=== PATIENT | male | born 1955 | race Caucasian/White ===

== ENCOUNTER → 2016-08-26 | Outpatient (CLI) | payer OTHER ==
--- NOTE | 2016-08-26 17:22 | KCIC ---
PROCEDURE MR of the right shoulder HISTORY Impingement syndrome. Surgery 1992. Decreased range of motion with certain movements. COMPARISON None TECHNIQUE Routine multiplanar sequences are obtained. FINDINGS There are postsurgical changes at the acromioclavicular joint. There is also postsurgical change with extensive artifact at the rotator cuff. This does partially obscure visualization of the rotator cuff. As seen, the supraspinatus and infraspinatus tendons are very thin. The subscapularis tendon demonstrates tendinosis with mild partial tearing. Mild rotator cuff muscle volume loss with fatty infiltration. No significant subdeltoid bursal fluid. No significant glenohumeral joint effusion. Mild signal at the superior labrum suspicious for a tear. No evidence of paralabral cyst. Biceps tendinosis with partial tearing but no complete rupture or dislocation. Geographic bone lesion identified within the proximal humerus, measures 5 cm long axis. 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 There is marrow edema at the greater tuberosity which is likely reactive. No acute soft tissue injury. IMPRESSION 1. Postsurgical changes at the acromioclavicular joint and rotator cuff. The supraspinatus and infraspinatus tendons are largely obscured by artifact but do appear at least thinned, compatible with at least partial tearing. MR arthrography could be of benefit to better characterize the extent of any partial-thickness or full-thickness rotator cuff tearing, if indicated. Mild partial subscapularis tendon tear 2. Small superior labral tear. 3. 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 Due to its size, recommend correlation with radiographs. Bone scan could also be of benefit to document the degree of activity of the lesion, so as to better exclude other etiology, in particular low-grade chondrosarcoma. 4. Partial tearing of the biceps tendon. Electronically signed by: Everett Mukherjee MD (Aug 26, 2016 17:20:53)
== END | disposition home or self-care (01) ==
LOC: KCIC MRI 16:22
PROVIDERS: ATTEND Nurse Practitioner Family
DX: M75.41 Impingement syndrome of right shoulder (principal); S46.211A Strain of muscle, fascia and tendon of other parts of biceps, right arm, initial encounter; S43.431A Superior glenoid labrum lesion of right shoulder, initial encounter; X58.XXXA Exposure to other specified factors, initial encounter; Y93.89 Activity, other specified; Y92.89 Other specified places as the place of occurrence of the external cause; Y99.8 Other external cause status
CPT/HCPCS: 73221

== ENCOUNTER → 2017-07-10 | Outpatient (CLI) | payer OTHER | END | disposition home or self-care (01) | LOC: NM 10:47 | DX: D16.01 Benign neoplasm of scapula and long bones of right upper limb (principal) | CPT/HCPCS: 78300; 96374; A9503 ==

== ENCOUNTER → 2018-04-11 | Outpatient (CLI) | payer OTHER ==
[~2018-04-11] MED LIST: 0.9 % SODIUM CHLORIDE 10 ML DISP.SYRIN. ID ONE; GADOBUTROL 10 MMOL/10 ML VIAL INT ART ONE; IOHEXOL 300 MG/ML 50 ML VIAL. INT ART ONE; LIDOCAINE 1% Multi-Dose 20 ML VIAL. ID ONE
--- NOTE | 2018-04-11 16:08 | KCIC ---
MR arthrogram of the right shoulder Indication: Right shoulder pain and impingement. Previous surgery in 1992. Note that patient has a known bone tumor of the upper arm, which is being followed by orthopedic oncology at an outside institution. Technique: Intra-articular contrast injected into the glenohumeral joint and is reported separately. Routine 4 plane sequences were obtained, including ABER positioning. FINDINGS: Artifact: No significant image degradation. Acromioclavicular joint: Mildly degenerative, with mild joint hypertrophy. Rotator cuff: * Supraspinatus-infraspinatus tendon: Extensive postoperative susceptibility artifact, compatible with prior surgical intervention. There is now a full-thickness contrast filled gap at the anterior supraspinatus tendon, compatible with a recurrent tear which measures about 2 cm AP diameter by 15 mm retraction. * Subscapularis tendon: Partial tear. * Muscle bulk: Moderate volume loss compatible with atrophy. * Subacromial subdeltoid bursa: Contrast accumulation in the bursa. 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 Subchondral cyst now identified at the glenoid. Labrum: Minimal signal within the superior labrum, compatible with a very small tear. Biceps tendon: High-grade tendinosis/tearing. This may have progressed slightly since prior study. Bones: The large bone lesion of the humeral metaphysis is redemonstrated, measures 4.8 cm cephalocaudal, stable since prior study. Note this is suboptimally evaluated on this exam which was obtained without arthrographic technique. Soft tissue: No acute findings. Impression: 1. Evidence of a recurrent full-thickness rotator cuff tear with mild retraction at the anterior supraspinatus tendon. Mild partial subscapularis tendon tear at the upper fibers. 2. Biceps tendinosis with partial tearing, may be slightly worse. 3. Very small superior labral tear. 4. Suboptimal evaluation of the proximal humeral bone lesion due to arthrographic technique, but reportedly this has already been worked up and is being followed up at an outside institution. Electronically signed by: Everett Mukherjee MD (04/11/2018 4:05 PM) [facility]
--- NOTE | 2018-04-12 12:28 | KCIC ---
Fluoroscopically guided injection of the right shoulder for MR arthrogram 04/11/2018 Clinical history: Chronic right shoulder pain. Technique: After the risks and benefits of the procedure were explained to the patient, written informed consent was obtained. The anterior skin surface of the right shoulder was prepped and draped in sterile fashion. 1% lidocaine was used as local anesthetic. Under fluoroscopic guidance, a 22-gauge spinal needle was advanced into the anterior aspect of the right glenohumeral joint. Intra-articular position of the needle was confirmed with 5 cc of Isovue 200. Following this a solution containing 5 cc of lidocaine, 10 cc of normal saline and 0.1 cc of Gadavist were injected into the right glenohumeral joint under fluoroscopic control. Following this the needle was removed and hemostasis achieved at the puncture site. A sterile bandage was placed on the skin puncture site. The patient tolerated the procedure well and there were no immediate complications. The total fluoroscopic time for this study was 24 seconds. 1 digital fluoroscopic captured radiograph of the right shoulder was obtained. The patient was taken to MRI for further imaging. Impression: Technically successful injection of the right shoulder joint under fluoroscopy as outlined above. Electronically signed by: Celio Andino MD (04/12/2018 12:24 PM) [facility]
== END | disposition home or self-care (01) ==
LOC: KCIC 10:39
PROVIDERS: ATTEND Orthopaedic Surgery
DX: S43.431A Superior glenoid labrum lesion of right shoulder, initial encounter (principal); M75.101 Unspecified rotator cuff tear or rupture of right shoulder, not specified as traumatic; M19.011 Primary osteoarthritis, right shoulder; M94.211 Chondromalacia, right shoulder; Z87.891 Personal history of nicotine dependence; X58.XXXA Exposure to other specified factors, initial encounter; Y93.89 Activity, other specified; Y92.89 Other specified places as the place of occurrence of the external cause; Y99.8 Other external cause status
CPT/HCPCS: 73040; 73222; A9585; Q9967

== ENCOUNTER 2021-06-02 19:47 | Observation (INO) | payer OTHER ==
[~2021-06-02] VITALS: Ht 177.8 cm; Wt 95.6 kg
[2021-06-02] MEDS ORDERED: HEPARIN for IV BOLUS 10,000 UNIT/10 ML VIAL. IV PRN (20:15)
[2021-06-02] MEDS ORDERED: HEPARIN for IV BOLUS 10,000 UNIT/10 ML VIAL. IV ONE (20:15)
--- NOTE | 2021-06-02 20:27 | ED.ADGEN ---
Past Medical History Past Surgical History: Tonsillectomy, Other Additional Past Surgical Histo: bilat shoulder General Adult EDM: Chief Complaint: DIZZY/LIGHT HEADED HPI: HPI: Patient is a 65 year old male coming in for lightheadedness. Patient was working at the gym about 2.5 hours prior to arrival when he was walking until he felt lightheaded like he might pass out. Patient was found to be in atrial fibrillation by EMS and patient had already taken 325 aspirin. Patient has no history of atrial fibrillation. Patient states he had a cardiac work-up about 6 months ago and was told to start a statin. Patient denies any supplement use but states he drinks 1 to 2 cups of coffee a day and 2-3 diet Mountain Dew's a day. Denies any chest pain or palpitations. Denies any history of lower extremity edema states he smokes occasionally on weekends occasional marijuana. Denies any other drug use. Review of Systems: Review of Systems: All other systems within normal limits except for as noted in the HPI Current Medications: Current Medications Medications (Trade) Dose Ordered Sig/Elder Start Time Stop Time Status Last Admin Dose Admin Acetaminophen (Tylenol) 650 mg PRN Q4HRS PRN 06/02/21 22:30 06/03/21 22:29 Diltiazem HCl (Cardizem Iv Push) 15 mg 1X ONCE 06/02/21 20:15 06/02/21 20:16 DC Diltiazem HCl 125 mg/Sodium Chloride 125 ml @ 5 mls/hr CONT PRN 06/02/21 20:30 Fentanyl Citrate (Fentanyl 2ml Vial) 50 mcg PRN Q1HR PRN 06/02/21 22:30 06/03/21 22:29 Heparin Sodium (Porcine) (Heparin Sodium) 2,350 unit PRN Q6HRS PRN 06/02/21 20:15 Heparin Sodium/ Dextrose 250 ml @ 11.28 mls/ hr CONT PRN 06/02/21 20:30 Ondansetron HCl (Zofran) 4 mg PRN Q8HRS PRN 06/02/21 22:30 06/03/21 22:29 Sodium Chloride 1,000 ml @ 1,000 mls/hr 1X ONCE 06/02/21 23:00 06/02/21 23:59 Allergies: Allergies: Allergies Coded Allergies Type Severity Reaction Last Updated Verified No Known Drug Allergies 04/11/18 No Physical Exam: PE: Constitutional: Well developed, well nourished, no acute distress, non-toxic appearance. [] HENT: Normocephalic, atraumatic, bilateral external ears normal, nose normal. [] Eyes: PERRLA, conjunctiva normal, no discharge. [] Neck: No rigidity, supple, no stridor. [] Cardiovascular: Tachycardic, regular regular rhythm, brisk cap refill [] Lungs & Thorax: Non labored symmetric respirations, no tachypnea or respiratory distress. Left basilar crackles [] Abdomen: Soft, nondistended. Skin: Warm, dry, no erythema, no rash. [] Back: Unremarkable Extremities: No deformities, range of motion grossly intact, no lower extremity edema [] Neurologic: Alert and oriented X 3, no focal deficits noted. [] Psychologic: Affect normal, judgement normal, mood normal. [] Current Patient Data: Labs: Laboratory Tests Test 06/02/21 20:30 06/02/21 21:12 White Blood Count 8.4 x10^3/uL (4.0-11.0) Red Blood Count 4.60 x10^6/uL (4.30-5.70) Hemoglobin 14.8 g/dL (13.0-17.5) Hematocrit 43.1 % (39.0-53.0) Mean Corpuscular Volume 94 fL (79-100) Mean Corpuscular Hemoglobin 32 pg (25-35) Mean Corpuscular Hemoglobin Concent 34 g/dL (31-37) Red Cell Distribution Width 12.9 % (11.5-14.5) Platelet Count 225 x10^3/uL (140-400) Neutrophils (%) (Auto) 60 % (31-73) Lymphocytes (%) (Auto) 26 % (24-48) Monocytes (%) (Auto) 10 % (0-9) H Eosinophils (%) (Auto) 4 % (0-3) H Basophils (%) (Auto) 1 % (0-3) Neutrophils # (Auto) 5.0 x10^3/uL (1.8-7.7) Lymphocytes # (Auto) 2.2 x10^3/uL (1.0-4.8) Monocytes # (Auto) 0.8 x10^3/uL (0.0-1.1) Eosinophils # (Auto) 0.3 x10^3/uL (0.0-0.7) Basophils # (Auto) 0.1 x10^3/uL (0.0-0.2) Prothrombin Time 13.1 SEC (11.7-14.0) Prothrombin Time INR 1.0 (0.8-1.1) D-Dimer (Shruthi) 0.33 ug/mlFEU (0.00-0.50) Sodium Level 139 mmol/L (136-145) Potassium Level 4.4 mmol/L (3.5-5.1) Chloride Level 104 mmol/L (98-107) Carbon Dioxide Level 25 mmol/L (21-32) Anion Gap 10 (6-14) Blood Urea Nitrogen 31 mg/dL (8-26) H Creatinine 1.1 mg/dL (0.7-1.3) Estimated GFR (Cockcroft-Gault) 67.6 BUN/Creatinine Ratio 28 (6-20) H Glucose Level 96 mg/dL (70-99) Calcium Level 8.4 mg/dL (8.5-10.1) L Phosphorus Level 3.3 mg/dL (2.6-4.7) Magnesium Level 2.5 mg/dL (1.8-2.4) H Total Bilirubin 0.5 mg/dL (0.2-1.0) Aspartate Amino Transferase (AST) 28 U/L (15-37) Alanine Aminotransferase (ALT) 37 U/L (16-63) Alkaline Phosphatase 74 U/L (46-116) Troponin I High Sensitivity 11 ng/L (4-75) RE-Vnl-R-Type Natriuretic Peptide 175 pg/mL (0-124) H Total Protein 6.6 g/dL (6.4-8.2) Albumin 3.5 g/dL (3.4-5.0) Albumin/Globulin Ratio 1.1 (1.0-1.7) Urine Collection Type Unknown Urine Color Yellow Urine Clarity Clear Urine pH 6.0 (<5.0-8.0) Urine Specific [place] 1.015 (1.000-1.030) Urine Protein Negative mg/dL (NEG-TRACE) Urine Glucose (UA) Negative mg/dL (NEG) Urine Ketones (Stick) Negative mg/dL (NEG) Urine Blood Negative (NEG) Urine Nitrite Negative (NEG) Urine Bilirubin Negative (NEG) Urine Urobilinogen Dipstick 0.2 mg/dL (0.2 mg/dL) Urine Leukocyte Esterase Negative (NEG) Urine RBC 0 /HPF (0-2) Urine WBC 0 /HPF (0-4) Urine Bacteria 0 /HPF (0-FEW) Urine Hyaline Casts Few /HPF Laboratory Tests 06/02/21 20:30 Laboratory Tests 06/02/21 20:30 Vital Signs: Vital Signs Date Time Temp Pulse Resp B/P (MAP) Pulse Ox O2 Delivery O2 Flow Rate FiO2 06/02/21 19:55 98.6 146 18 124/69 (87) 96 Room Air 98.6 EKG: EKG: Atrial fibrillation, heart rate 145 bpm, normal axis, no [] Heart Score: C/O Chest Pain: No HEART Score for Chest Pain: HEART Score for Chest Pain Response (Comments) Value History Slighlty/Non-Suspicious 0 ECG Nonspecific Repolarizatio 1 Age >45 - < 65 1 Risk Factors 1 or 2 Risk Factors 1 Troponin < Normal Limit 0 Total 3 Risk Factors: Risk Factors: DM, Current or recent (<one month) smoker, HTN, HLP, family history of CAD, obesity. Risk Scores: Score 0 - 3: 2.5% MACE over next 6 weeks - Discharge Home Score 4 - 6: 20.3% MACE over next 6 weeks - Admit for Clinical Observation Score 7 - 10: 72.7% MACE over next 6 weeks - Early Invasive Strategies Radiology/Procedures: Radiology/Procedures: [][facility] [address] [place] [address] IMAGING REPORT Signed PATIENT: LEO VILLANUEVA TACCOUNT: [id number] : 1955 LOCATION: ER AGE: 65 SEX: M EXAM STATUS: REG ER ORD. PHYSICIAN: PER HEWITT MD REASON: a fib PROCEDURE: CHEST AP ONLY XR CHEST 1V History: Atrial fibrillation. Comparison: None. Technique: AP radiograph of the chest. Findings: The lungs are adequately and symmetrically inflated. No airspace consolidation, pleural effusion or pneumothorax. The cardiomediastinal silhouette and pulmonary vasculature are within normal limits. No acute osseous abnormality. Soft tissues are unremarkable. Impression: 1. No acute cardiopulmonary process. Electronically signed by: Peter Robbins MD (06/02/2021 9:26 PM) [facility] DICTATED and SIGNED BY: PETER ROBBINS MD DATE: 06/02/21 [id number] 0 Course & Med Decision Making: Course & Med Decision Making Pertinent Labs and Imaging studies reviewed. (See chart for details) Discussed patient with Dr. Fung, and she has been start patient on Cardizem and heparin. We went to discuss plan with patient he had converted spontaneously back to sinus rhythm. Will admit for observation for paroxysmal atrial fibrillation. [] Dragon Disclaimer: Dragon Disclaimer: This electronic medical record was generated, in whole or in part, using a voice recognition dictation system. Departure Departure Impression: Primary Impression: Paroxysmal atrial fibrillation with rapid ventricular response Disposition: ADMITTED INPATIENT Admitting Physician: HIMS Condition: STABLE Referrals: LAKESHA CAMARENA MD (PCP) PER HEWITT MD Jun 02, 2021 20:27
[2021-06-02] MEDS ORDERED: HEPARIN 25,000UTS/250ML PREMIX 250 ML IV PRN (20:30)
[2021-06-02 20:45] LABS: BASO # 0.1 x10^3/uL (0.0-0.2); BASO % 1 % (0-3); EOS # 0.3 x10^3/uL (0.0-0.7); EOS % 4 % (0-3); HEMATOCRIT 43.1 % (39.0-53.0); HEMOGLOBIN 14.8 g/dL (13.0-17.5); LYMPH # 2.2 x10^3/uL (1.0-4.8); LYMPH % 26 % (24-48); MEAN CORPUSCULAR HEMOGLOBIN 32 pg (25-35); MEAN CORPUSCULAR HGB CONC 34 g/dL (31-37); MEAN CORPUSCULAR VOLUME 94 fL (79-100); MONO # 0.8 x10^3/uL (0.0-1.1); MONO % 10 % (0-9); NEUT % 60 % (31-73); PLATELET COUNT 225 x10^3/uL (140-400); RED CELL DISTRIBUTION WIDTH 12.9 % (11.5-14.5); WHITE BLOOD COUNT 8.4 x10^3/uL (4.0-11.0)
[2021-06-02 20:54] LABS: PROTHROMBIN TIME PATIENT 13.1 SEC (11.7-14.0)
[2021-06-02 20:57] LABS: D-DIMER 0.33 ug/mlFEU (0.00-0.50)
[2021-06-02 21:05] LABS: CALCIUM 8.4 mg/dL (8.5-10.1); CREATININE 1.1 mg/dL (0.7-1.3); GFR 67.6; POTASSIUM 4.4 mmol/L (3.5-5.1)
[2021-06-02 21:21] LABS: BILIRUBIN,URINE NEGATIVE (NEG); CLARITY,URINE CLEAR; COLOR,URINE YELLOW; NITRITE,URINE NEGATIVE (NEG); PROTEIN,URINE NEGATIVE (NEG-TRACE); UROBILINOGEN,URINE 0.2 mg/dL (0.2 mg/dL)
[2021-06-02 21:22] LABS: ALBUMIN 3.5 g/dL (3.4-5.0); ALBUMIN/GLOBULIN RATIO 1.1 (1.0-1.7); MAGNESIUM 2.5 mg/dL (1.8-2.4); PHOSPHORUS 3.3 mg/dL (2.6-4.7); TOTAL BILIRUBIN 0.5 mg/dL (0.2-1.0); TOTAL PROTEIN 6.6 g/dL (6.4-8.2)
--- NOTE | 2021-06-02 21:28 | RAD ---
XR CHEST 1V History: Atrial fibrillation. Comparison: None. Technique: AP radiograph of the chest. Findings: The lungs are adequately and symmetrically inflated. No airspace consolidation, pleural effusion or p neumothorax. The cardiomediastinal silhouette and pulmonary vasculature are within normal limits. No acute osseous abnormality. Soft tissues are unremarkable. Impression: 1. No acute cardiopulmonary process. Electronically signed by: Peter Tong MD (06/02/2021 9:26 PM) [facility]
[2021-06-02 21:32] LABS: BACTERIA,URINE 0 /HPF (0-FEW); HYALINE CASTS, URINE FEW /HPF; RBC,URINE 0 /HPF (0-2); WBC,URINE 0 /HPF (0-4)
[2021-06-02] MEDS ORDERED: ACETAMINOPHEN 325 MG TABLET. PO PRN (22:30)
[2021-06-02] MEDS ORDERED: fentaNYL PF VIAL 100 MCG/2 ML VIAL IVP PRN (22:30)
[2021-06-02] MEDS ORDERED: ONDANSETRON PF 4 MG/2 ML VIAL. IVP PRN (22:30)
[2021-06-02] MEDS ORDERED: IV NORMAL SALINE 1000ML BAG 1,000 ML IV ONE (23:00)
[2021-06-03 03:42] VITALS: BP 138/82
[2021-06-03] MEDS ORDERED: OMEG1CAP50 PO (03:57)
[2021-06-03] MEDS ORDERED: CRESTOR5 MG PO (03:57)
[2021-06-03] MEDS ORDERED: MULT-245 PO (03:57)
[2021-06-03 04:57] LABS: BASO % 1 % (0-3); EOS # 0.3 x10^3/uL (0.0-0.7); EOS % 5 % (0-3); HEMATOCRIT 43.2 % (39.0-53.0); HEMOGLOBIN 14.5 g/dL (13.0-17.5); LYMPH # 1.9 x10^3/uL (1.0-4.8); LYMPH % 27 % (24-48); MEAN CORPUSCULAR HEMOGLOBIN 32 pg (25-35); MEAN CORPUSCULAR HGB CONC 34 g/dL (31-37); MEAN CORPUSCULAR VOLUME 96 fL (79-100); MONO # 0.6 x10^3/uL (0.0-1.1); MONO % 8 % (0-9); NEUT # 4.2 x10^3/uL (1.8-7.7); NEUT % 59 % (31-73); PLATELET COUNT 214 x10^3/uL (140-400); RED CELL DISTRIBUTION WIDTH 13.1 % (11.5-14.5); WHITE BLOOD COUNT 7.1 x10^3/uL (4.0-11.0)
[2021-06-03 05:18] LABS: ALBUMIN 3.4 g/dL (3.4-5.0); CALCIUM 8.2 mg/dL (8.5-10.1); CREATININE 1.1 mg/dL (0.7-1.3); GFR 67.6; POTASSIUM 3.9 mmol/L (3.5-5.1); TOTAL BILIRUBIN 0.4 mg/dL (0.2-1.0); TOTAL PROTEIN 6.7 g/dL (6.4-8.2)
[2021-06-03 07:00] VITALS: BP 131/72
--- NOTE | 2021-06-03 08:35 | EKG ---
[facility] [address] [place] [address] Test Date: 2021-06-02 Test Time: 19:49:23 Pat Name: LEO VILLANUEVA Department: Room: [facility] 1 Gender: M Nurse Wound Care: : 1955 Requested By: PER HEWITT Order Number: [id number] Reading MD: Troy Fung Measurements Intervals [place] Rate: 144 P: 90 UT: 124 QRS: 44 QRSD: 90 T: -32 QT: 282 QTc: 441 Interpretive Statements ATRIAL FLUTTER WITH RVR T ABNORMALITY IN INFERIOR LEADS ABNORMAL ECG RI6.02 No previous ECG available for comparison Electronically Signed On 06-04-2021 13:09:36 CHANNEL DIRECTOR by Troy Fung
--- NOTE | 2021-06-03 08:37 | EKG ---
[facility] [address] [place] [address] Test Date: 2021-06-02 Test Time: 20:37:00 Pat Name: LEO VILLANUEVA Department: Room: [facility] Gender: M Customer Energy Specialist: : 1955 Requested By: CINDY COX Order Number: [id number] Reading MD: Troy Fung Measurements Intervals [place] Rate: 72 P: 40 DE: 180 QRS: 46 QRSD: 86 T: 22 QT: 374 QTc: 411 Interpretive Statements SINUS RHYTHM ATRIAL PREMATURE COMPLEX(ES) Electronically Signed On 06-04-2021 13:06:41 RECEIVER STOCKER by Troy Fung
[2021-06-03 09:39] LABS: CHOLESTEROL/HDL RATIO 4.9
[2021-06-03] MEDS ORDERED: ELECTROLYTE (NON-ICU) PROTOCOL. MC PRN (09:45)
[2021-06-03] MEDS ORDERED: ZOLPIDEM 5 MG TABLET. PO PRN (09:45)
[2021-06-03] MEDS ORDERED: CALCIUM CARBONATE 500 MG TAB.CHEW PO PRN (09:45)
[2021-06-03] MEDS ORDERED: ONDANSETRON PF 4 MG/2 ML VIAL. IVP PRN (09:45)
[2021-06-03] MEDS ORDERED: ACETAMINOPHEN 325 MG TABLET. PO PRN (09:45)
--- NOTE | 2021-06-03 10:03 | NUR ---
Bolus of NS ordered still show that was supposed to be given in ER. So the Med was non-administered by this RN
--- NOTE | 2021-06-03 10:10 | PDOC1 ---
History and Physical Date of Service: DOS: DATE: 06/03/21 TIME: 10:00 Chief Complaint: Chief Complain: lightheadedness History of Present Illness: HPI: Patient is a 65-year-old white male presented to the emergency room yesterday due to late this. Patient reports he was working out yesterday and felt a little bit lightheaded by the end of his workout; said he usually works out 3-4 times a week. Drove home and was feeling much more lightheaded. Contacted his daughter who is an DEBUR[employer] OPERATOR here and she evaluated him. Was able to be hooked up to a monitor and to be in A. fib with RVR. Recommended he come to the emergency room at that point. On arrival here he was still in A. fib with RVR. His symptoms did improve. He spontaneously converted back to sinus rhythm while down there. Given the episode admission was recommended. Cardiology was also consulted in emergency room. Patient reports to me that he had a few friends which caused him to be more concerned about his health. He had a stress test done at the [facility] over the [place] that he thinks was normal. He was started on Rouvastatin after that. Denies any other medical history. Reports that he used to be a heavy drinker when he was in the [place]. Now is drinking he has tried to cut back and said he only drinks on weekends now. However he said he has multiple drinks a day on those days used at the point of getting drunk. He also smokes cigarettes while drinking. I evaluated the patient he was resting in bed no complaints that he is feeling much better. Cardiology consulted. Past Medical/Surgical History: PMH/PSH: High cholesterol Allergies: Allergies: Coded Allergies: No Known Drug Allergies (Unverified , 04/11/18) Family History: Family History: Reports no family history of cardiac events Social History: Social History: Alcohol use on weekends, tobacco use on weekends no drug use Current Medications: Current Medications Current Medications Diltiazem HCl (Cardizem Iv Push) 15 mg 1X ONCE IVP ; Start 06/02/21 at 20:15; Stop 06/02/21 at 20:16; Status DC Diltiazem HCl 125 mg/Sodium Chloride 125 ml @ 5 mls/hr CONT PRN IV PER WA OTOCOL; Start 06/02/21 at 20:30 Heparin Sodium (Porcine) (Heparin Sodium) 4,000 unit 1X ONCE IV ; Start 06/02/21 at 20:15; Stop 06/02/21 at 20:16; Status DC Heparin Sodium/ Dextrose 250 ml @ 11.28 mls/ hr CONT PRN IV PER PROTOCOL; Start 06/02/21 at 20:30 Heparin Sodium (Porcine) (Heparin Sodium) 2,350 unit PRN Q6HRS PRN IV FOR UFH LEVEL LESS THAN 0.2; Start 06/02/21 at 20:15 Ondansetron HCl (Zofran) 4 mg PRN Q8HRS PRN IVP NAUSEA/VOMITING 1ST CHOICE; Start 06/02/21 at 22:30; Stop 06/03/21 at 22:29 Fentanyl Citrate (Fentanyl 2ml Vial) 50 mcg PRN Q1HR PRN IVP SEVERE PAIN 7-10; Start 06/02/21 at 22:30; Stop 06/03/21 at 22:29 Acetaminophen (Tylenol) 650 mg PRN Q4HRS PRN PO FEVER > 100.3'F; Start 06/02/21 at 22:30; Stop 06/03/21 at 22:29 Sodium Chloride 1,000 ml @ 1,000 mls/hr 1X ONCE IV ; Start 06/02/21 at 23:00; Stop 06/02/21 at 23:59; Status DC Atorvastatin Calcium (Lipitor) 40 mg DAILY PO ; Start 06/03/21 at 10:00 Ondansetron HCl (Zofran) 4 mg PRN Q6HRS PRN IVP NAUSEA/VOMITING; Start 06/03/21 at 09:45 Calcium Carbonate/ Glycine (Tums) 500 mg PRN Q3HRS PRN PO UPSET STOMACH; Start 06/03/21 at 09:45 Zolpidem Tartrate (Ambien) 5 mg PRN QHS PRN PO INSOMNIA, MAY REPEAT IN 1HR; Start 06/03/21 at 09:45 Info (Non-Icu Electrolyte Protocol) 1 ea PRN DAILY PRN MC SEE COMMENTS; Start 06/03/21 at 09:45 Acetaminophen (Tylenol) 650 mg PRN Q6HRS PRN PO Headaches, Temp > 101.5F; Start 06/03/21 at 09:45 Senna/Docusate Sodium (Senna Plus) 1 tab BID PO ; Start 06/03/21 at 21:00 Active Scripts Active Reported Multi Vitamin Daily (Multivitamin) 1 Each Tablet 1 Tab PO DAILY 30 Days Fish Oil 1,000 Mg Softgel ([place]-3 Fatty Acids/Fish Oil) 1 Each Capsule 1 Cap PO DAILY 30 Days Crestor (Rosuvastatin Calcium) 5 Mg Tablet 2 Tab PO DAILY ROS: Review of Systems Review of System Unless noted in HPI 14 point review of systems was negative Physical Exam: Vital Signs: Vital Signs Date Time Temp Pulse Resp B/P (MAP) Pulse Ox O2 Delivery O2 Flow Rate FiO2 06/03/21 07:00 97.0 64 20 131/72 (91) 98 Room Air 97.0 Physcial Exam: GEN: No apparent distress. Alert and oriented HEENT: Normal cephalic, atraumatic, external auditory canals are patent EYES: Extraocular muscles are intact, pupil are equally round and reactive to light and accommodation MUSCULOSKELETAL: Well developed , well nourished, good range of motion ENDOCRINE: No thyromegaly was palpated LYMPHATICS: No cervical chain or axillary nodes were noted HEMATOPOIETIC: No bruising NECK: Supple, no JVD, no thyromegaly was noted LUNGS: Clear to auscultation in all lung dc without rhonchi or wheezing HEART: RRR, S!, S2 present. Peripheral pulses intact, no obvious murmurs noted ABDOMEN: Soft, nontender. Positive bowel sounds, no organomegaly, normal bowel sounds EXTREMITIES: Without clubbing, cyanosis, or edema. Pedal pulses intact. NEUROLOGIC: Normal speech and tone. A&O x 3, moves all extremities, no obvious focal deficits PSYCHIATRIC: Normal affect, normal mood. Stable SKIN: No ulcerations or rashes, good skin turgor, no jaundice VASCULAR: Good capillary refill, neurovascular bundle appears to be intact Labs: Labs: Laboratory Tests Test 06/02/21 20:30 06/02/21 21:12 06/03/21 04:30 White Blood Count 8.4 x10^3/uL (4.0-11.0) 7.1 x10^3/uL (4.0-11.0) Red Blood Count 4.60 x10^6/uL (4.30-5.70) 4.50 x10^6/uL (4.30-5.70) Hemoglobin 14.8 g/dL (13.0-17.5) 14.5 g/dL (13.0-17.5) Hematocrit 43.1 % (39.0-53.0) 43.2 % (39.0-53.0) Mean Corpuscular Volume 94 fL (79-100) 96 fL (79-100) Mean Corpuscular Hemoglobin 32 pg (25-35) 32 pg (25-35) Mean Corpuscular Hemoglobin Concent 34 g/dL (31-37) 34 g/dL (31-37) Red Cell Distribution Width 12.9 % (11.5-14.5) 13.1 % (11.5-14.5) Platelet Count 225 x10^3/uL (140-400) 214 x10^3/uL (140-400) Neutrophils (%) (Auto) 60 % (31-73) 59 % (31-73) Lymphocytes (%) (Auto) 26 % (24-48) 27 % (24-48) Monocytes (%) (Auto) 10 % (0-9) 8 % (0-9) Eosinophils (%) (Auto) 4 % (0-3) 5 % (0-3) Basophils (%) (Auto) 1 % (0-3) 1 % (0-3) Neutrophils # (Auto) 5.0 x10^3/uL (1.8-7.7) 4.2 x10^3/uL (1.8-7.7) Lymphocytes # (Auto) 2.2 x10^3/uL (1.0-4.8) 1.9 x10^3/uL (1.0-4.8) Monocytes # (Auto) 0.8 x10^3/uL (0.0-1.1) 0.6 x10^3/uL (0.0-1.1) Eosinophils # (Auto) 0.3 x10^3/uL (0.0-0.7) 0.3 x10^3/uL (0.0-0.7) Basophils # (Auto) 0.1 x10^3/uL (0.0-0.2) 0.0 x10^3/uL (0.0-0.2) Prothrombin Time 13.1 SEC (11.7-14.0) Prothromb Time International Ratio 1.0 (0.8-1.1) D-Dimer (Shruthi) 0.33 ug/mlFEU (0.00-0.50) Sodium Level 139 mmol/L (136-145) 139 mmol/L (136-145) Potassium Level 4.4 mmol/L (3.5-5.1) 3.9 mmol/L (3.5-5.1) Chloride Level 104 mmol/L (98-107) 104 mmol/L (98-107) Carbon Dioxide Level 25 mmol/L (21-32) 26 mmol/L (21-32) Anion Gap 10 (6-14) 9 (6-14) Blood Urea Nitrogen 31 mg/dL (8-26) 29 mg/dL (8-26) Creatinine 1.1 mg/dL (0.7-1.3) 1.1 mg/dL (0.7-1.3) Estimated GFR (Cockcroft-Gault) 67.6 67.6 BUN/Creatinine Ratio 28 (6-20) 26 (6-20) Glucose Level 96 mg/dL (70-99) 185 mg/dL (70-99) Calcium Level 8.4 mg/dL (8.5-10.1) 8.2 mg/dL (8.5-10.1) Phosphorus Level 3.3 mg/dL (2.6-4.7) Magnesium Level 2.5 mg/dL (1.8-2.4) Total Bilirubin 0.5 mg/dL (0.2-1.0) 0.4 mg/dL (0.2-1.0) Aspartate Amino Transf (AST/SGOT) 28 U/L (15-37) 23 U/L (15-37) Alanine Aminotransferase (ALT/SGPT) 37 U/L (16-63) 37 U/L (16-63) Alkaline Phosphatase 74 U/L (46-116) 69 U/L (46-116) Troponin I High Sensitivity 11 ng/L (4-75) 12 ng/L (4-75) TE-Qcv-G-Type Natriuretic Peptide 175 pg/mL (0-124) Total Protein 6.6 g/dL (6.4-8.2) 6.7 g/dL (6.4-8.2) Albumin 3.5 g/dL (3.4-5.0) 3.4 g/dL (3.4-5.0) Albumin/Globulin Ratio 1.1 (1.0-1.7) 1.0 (1.0-1.7) Urine Collection Type Unknown Urine Color Yellow Urine Clarity Clear Urine pH 6.0 (<5.0-8.0) Urine Specific [place] 1.015 (1.000-1.030) Urine Protein Negative mg/dL (NEG-TRACE) Urine Glucose (UA) Negative mg/dL (NEG) Urine Ketones (Stick) Negative mg/dL (NEG) Urine Blood Negative (NEG) Urine Nitrite Negative (NEG) Urine Bilirubin Negative (NEG) Urine Urobilinogen Dipstick 0.2 mg/dL (0.2 mg/dL) Urine Leukocyte Esterase Negative (NEG) Urine RBC 0 /HPF (0-2) Urine WBC 0 /HPF (0-4) Urine Bacteria 0 /HPF (0-FEW) Urine Hyaline Casts Few /HPF Triglycerides Level 233 mg/dL (0-150) Cholesterol Level 206 mg/dL (0-200) LDL Cholesterol, Calculated 117 mg/dL (0-100) VLDL Cholesterol, Calculated 47 mg/dL (0-40) Non-HDL Cholesterol Calculated 164 mg/dL (0-129) HDL Cholesterol 42 mg/dL (40-60) Cholesterol/HDL Ratio 4.9 Thyroid Stimulating Hormone (TSH) 4.030 uIU/mL (0.358-3.74) Laboratory Tests Test 06/02/21 20:30 06/02/21 21:12 06/03/21 04:30 White Blood Count 8.4 x10^3/uL (4.0-11.0) 7.1 x10^3/uL (4.0-11.0) Red Blood Count 4.60 x10^6/uL (4.30-5.70) 4.50 x10^6/uL (4.30-5.70) Hemoglobin 14.8 g/dL (13.0-17.5) 14.5 g/dL (13.0-17.5) Hematocrit 43.1 % (39.0-53.0) 43.2 % (39.0-53.0) Mean Corpuscular Volume 94 fL (79-100) 96 fL (79-100) Mean Corpuscular Hemoglobin 32 pg (25-35) 32 pg (25-35) Mean Corpuscular Hemoglobin Concent 34 g/dL (31-37) 34 g/dL (31-37) Red Cell Distribution Width 12.9 % (11.5-14.5) 13.1 % (11.5-14.5) Platelet Count 225 x10^3/uL (140-400) 214 x10^3/uL (140-400) Neutrophils (%) (Auto) 60 % (31-73) 59 % (31-73) Lymphocytes (%) (Auto) 26 % (24-48) 27 % (24-48) Monocytes (%) (Auto) 10 % (0-9) 8 % (0-9) Eosinophils (%) (Auto) 4 % (0-3) 5 % (0-3) Basophils (%) (Auto) 1 % (0-3) 1 % (0-3) Neutrophils # (Auto) 5.0 x10^3/uL (1.8-7.7) 4.2 x10^3/uL (1.8-7.7) Lymphocytes # (Auto) 2.2 x10^3/uL (1.0-4.8) 1.9 x10^3/uL (1.0-4.8) Monocytes # (Auto) 0.8 x10^3/uL (0.0-1.1) 0.6 x10^3/uL (0.0-1.1) Eosinophils # (Auto) 0.3 x10^3/uL (0.0-0.7) 0.3 x10^3/uL (0.0-0.7) Basophils # (Auto) 0.1 x10^3/uL (0.0-0.2) 0.0 x10^3/uL (0.0-0.2) Prothrombin Time 13.1 SEC (11.7-14.0) Prothromb Time International Ratio 1.0 (0.8-1.1) D-Dimer (Shruthi) 0.33 ug/mlFEU (0.00-0.50) Sodium Level 139 mmol/L (136-145) 139 mmol/L (136-145) Potassium Level 4.4 mmol/L (3.5-5.1) 3.9 mmol/L (3.5-5.1) Chloride Level 104 mmol/L (98-107) 104 mmol/L (98-107) Carbon Dioxide Level 25 mmol/L (21-32) 26 mmol/L (21-32) Anion Gap 10 (6-14) 9 (6-14) Blood Urea Nitrogen 31 mg/dL (8-26) 29 mg/dL (8-26) Creatinine 1.1 mg/dL (0.7-1.3) 1.1 mg/dL (0.7-1.3) Estimated GFR (Cockcroft-Gault) 67.6 67.6 BUN/Creatinine Ratio 28 (6-20) 26 (6-20) Glucose Level 96 mg/dL (70-99) 185 mg/dL (70-99) Calcium Level 8.4 mg/dL (8.5-10.1) 8.2 mg/dL (8.5-10.1) Phosphorus Level 3.3 mg/dL (2.6-4.7) Magnesium Level 2.5 mg/dL (1.8-2.4) Total Bilirubin 0.5 mg/dL (0.2-1.0) 0.4 mg/dL (0.2-1.0) Aspartate Amino Transf (AST/SGOT) 28 U/L (15-37) 23 U/L (15-37) Alanine Aminotransferase (ALT/SGPT) 37 U/L (16-63) 37 U/L (16-63) Alkaline Phosphatase 74 U/L (46-116) 69 U/L (46-116) Troponin I High Sensitivity 11 ng/L (4-75) 12 ng/L (4-75) PC-Dxv-P-Type Natriuretic Peptide 175 pg/mL (0-124) Total Protein 6.6 g/dL (6.4-8.2) 6.7 g/dL (6.4-8.2) Albumin 3.5 g/dL (3.4-5.0) 3.4 g/dL (3.4-5.0) Albumin/Globulin Ratio 1.1 (1.0-1.7) 1.0 (1.0-1.7) Urine Collection Type Unknown Urine Color Yellow Urine Clarity Clear Urine pH 6.0 (<5.0-8.0) Urine Specific [place] 1.015 (1.000-1.030) Urine Protein Negative mg/dL (NEG-TRACE) Urine Glucose (UA) Negative mg/dL (NEG) Urine Ketones (Stick) Negative mg/dL (NEG) Urine Blood Negative (NEG) Urine Nitrite Negative (NEG) Urine Bilirubin Negative (NEG) Urine Urobilinogen Dipstick 0.2 mg/dL (0.2 mg/dL) Urine Leukocyte Esterase Negative (NEG) Urine RBC 0 /HPF (0-2) Urine WBC 0 /HPF (0-4) Urine Bacteria 0 /HPF (0-FEW) Urine Hyaline Casts Few /HPF Triglycerides Level 233 mg/dL (0-150) Cholesterol Level 206 mg/dL (0-200) LDL Cholesterol, Calculated 117 mg/dL (0-100) VLDL Cholesterol, Calculated 47 mg/dL (0-40) Non-HDL Cholesterol Calculated 164 mg/dL (0-129) HDL Cholesterol 42 mg/dL (40-60) Cholesterol/HDL Ratio 4.9 Thyroid Stimulating Hormone (TSH) 4.030 uIU/mL (0.358-3.74) Assessment/Plan Assessment/Plan A. fib with RVR, history of high cholesterol -Presented 1 day history of dizziness after working out to be A. fib RVR -Has converted back to sinus rhythm -Cardiology consult. Looks like echo ordered hopeful to get done today may be able to discharge later today based upon findings -Can hold off heparin drip as long as he stays sinus rhythm -Home Crestor restarted -DVT prophylaxis -Cardiac diet -Counseled for 11 minutes on smoking cessation Justifications for Admission Other Justification DALLAS BAKER MD Jun 03, 2021 10:10
[2021-06-03] MEDS: ATORVASTATIN CALCIUM 40 MG TABLET. PO SCH (10:24)
[2021-06-03] MEDS: HEPARIN for SUB-Q USE 5,000 UNIT/ML VIAL. SQ SCH ×3 (10:25→20:48)
[2021-06-03 11:15] VITALS: BP 129/62
--- NOTE | 2021-06-03 11:36 | PDOC2 ---
CINDY COX EYEGLASS FRAME TRUER 06/03/21 1136: CARDIAC CONSULT DATE OF CONSULT Date of Consult DATE: 06/03/21 TIME: 11:11 REASON FOR CONSULT Reason for Consult: PAFIB REFERRING PHYSICIAN Referring Physician: Jeb SOURCE Source: Chart review, Patient HISTORY OF PRESENT ILLNESS HISTORY OF PRESENT ILLNESS This is a pleasant 65 yo male admitted for complains of palpitations. He does circuit training for about 45 minutes 3x a week and has been tolerating it until yesterday. He felt lightheaded coming home and was at home standing at the kitchen and did not feel well and was having palpitations. No chest pain but felt like he has to take a deep breath at that time to breath better. No covid- 19 s/s. He is vaccinated. Denies any falls, injury, recent surgery. Denies any past arrhythmias or CAD or VTE. He actually had a treadmill stress test last yr as he was told of an abnormal coronary calcium CT. Denies any recreational drug us. He smokes cigar on the weekend. He does not take ASA. No prior syncopal spells. PAST MEDICAL HISTORY Cardiovascular: Hyperlipidemia PAST SURGICAL HISTORY Past Surgical History: Hernia Repair, Tonsillectomy FAMILY HISTORY Family History: Hypertension SOCIAL HISTORY Smoke: # pack years (weekend cigar) ALCOHOL: occassional Drugs: None Lives: with Family CURRENT MEDICATIONS CURRENT MEDICATIONS Current Medications Medications (Trade) Dose Ordered Sig/Elder Route PRN Reason Start Time Stop Time Status Last Admin Dose Admin Atorvastatin Calcium (Lipitor) 40 mg DAILY PO 06/03/21 10:00 06/03/21 10:24 Heparin Sodium (Porcine) (Heparin Sodium) 5,000 unit Q8HRS SQ 06/03/21 10:00 06/03/21 10:25 ALLERGIES ALLERGIES: Coded Allergies: No Known Drug Allergies (Unverified , 04/11/18) ROS Review of System 14 point ROS evaluated with pertinent positives noted per HPI PHYSICAL EXAM General: Alert, Oriented X3, Cooperative, No acute distress HEENT: Atraumatic, Mucous membr. moist/pink Lungs: Clear to auscultation, Normal air movement Heart: Regular rate (SR), Normal S1, Normal S2, No murmurs Abdomen: Soft, No tenderness Extremities: No cyanosis, No edema Skin: No breakdown, No significant lesion Neuro: Normal speech, Sensation intact Psych/Mental Status: Mental status NL, Mood NL MUSCULOSKELETAL: Osteoarthritic changes both hands VITALS/I&O VITALS/I&O: Vital Signs Date Time Temp Pulse Resp B/P (MAP) Pulse Ox O2 Delivery O2 Flow Rate FiO2 06/03/21 07:00 97.0 64 20 131/72 (91) 98 Room Air 97.0 I & O 06/02/21 06/02/21 06/03/21 15:00 23:00 07:00 Intake Total 120 ml Balance 120 ml LABS Lab: Laboratory Tests Test 06/02/21 20:30 06/02/21 21:12 06/03/21 04:30 White Blood Count 8.4 x10^3/uL (4.0-11.0) 7.1 x10^3/uL (4.0-11.0) Red Blood Count 4.60 x10^6/uL (4.30-5.70) 4.50 x10^6/uL (4.30-5.70) Hemoglobin 14.8 g/dL (13.0-17.5) 14.5 g/dL (13.0-17.5) Hematocrit 43.1 % (39.0-53.0) 43.2 % (39.0-53.0) Mean Corpuscular Volume 94 fL (79-100) 96 fL (79-100) Mean Corpuscular Hemoglobin 32 pg (25-35) 32 pg (25-35) Mean Corpuscular Hemoglobin Concent 34 g/dL (31-37) 34 g/dL (31-37) Red Cell Distribution Width 12.9 % (11.5-14.5) 13.1 % (11.5-14.5) Platelet Count 225 x10^3/uL (140-400) 214 x10^3/uL (140-400) Neutrophils (%) (Auto) 60 % (31-73) 59 % (31-73) Lymphocytes (%) (Auto) 26 % (24-48) 27 % (24-48) Monocytes (%) (Auto) 10 % (0-9) H 8 % (0-9) Eosinophils (%) (Auto) 4 % (0-3) H 5 % (0-3) H Basophils (%) (Auto) 1 % (0-3) 1 % (0-3) Neutrophils # (Auto) 5.0 x10^3/uL (1.8-7.7) 4.2 x10^3/uL (1.8-7.7) Lymphocytes # (Auto) 2.2 x10^3/uL (1.0-4.8) 1.9 x10^3/uL (1.0-4.8) Monocytes # (Auto) 0.8 x10^3/uL (0.0-1.1) 0.6 x10^3/uL (0.0-1.1) Eosinophils # (Auto) 0.3 x10^3/uL (0.0-0.7) 0.3 x10^3/uL (0.0-0.7) Basophils # (Auto) 0.1 x10^3/uL (0.0-0.2) 0.0 x10^3/uL (0.0-0.2) Prothrombin Time 13.1 SEC (11.7-14.0) Prothrombin Time INR 1.0 (0.8-1.1) D-Dimer (Shruthi) 0.33 ug/mlFEU (0.00-0.50) Sodium Level 139 mmol/L (136-145) 139 mmol/L (136-145) Potassium Level 4.4 mmol/L (3.5-5.1) 3.9 mmol/L (3.5-5.1) Chloride Level 104 mmol/L (98-107) 104 mmol/L (98-107) Carbon Dioxide Level 25 mmol/L (21-32) 26 mmol/L (21-32) Anion Gap 10 (6-14) 9 (6-14) Blood Urea Nitrogen 31 mg/dL (8-26) H 29 mg/dL (8-26) H Creatinine 1.1 mg/dL (0.7-1.3) 1.1 mg/dL (0.7-1.3) Estimated GFR (Cockcroft-Gault) 67.6 67.6 BUN/Creatinine Ratio 28 (6-20) H 26 (6-20) H Glucose Level 96 mg/dL (70-99) 185 mg/dL (70-99) H Calcium Level 8.4 mg/dL (8.5-10.1) L 8.2 mg/dL (8.5-10.1) L Phosphorus Level 3.3 mg/dL (2.6-4.7) Magnesium Level 2.5 mg/dL (1.8-2.4) H Total Bilirubin 0.5 mg/dL (0.2-1.0) 0.4 mg/dL (0.2-1.0) Aspartate Amino Transferase (AST) 28 U/L (15-37) 23 U/L (15-37) Alanine Aminotransferase (ALT) 37 U/L (16-63) 37 U/L (16-63) Alkaline Phosphatase 74 U/L (46-116) 69 U/L (46-116) Troponin I High Sensitivity 11 ng/L (4-75) 12 ng/L (4-75) GK-Mpa-D-Type Natriuretic Peptide 175 pg/mL (0-124) H Total Protein 6.6 g/dL (6.4-8.2) 6.7 g/dL (6.4-8.2) Albumin 3.5 g/dL (3.4-5.0) 3.4 g/dL (3.4-5.0) Albumin/Globulin Ratio 1.1 (1.0-1.7) 1.0 (1.0-1.7) Urine Collection Type Unknown Urine Color Yellow Urine Clarity Clear Urine pH 6.0 (<5.0-8.0) Urine Specific [place] 1.015 (1.000-1.030) Urine Protein Negative mg/dL (NEG-TRACE) Urine Glucose (UA) Negative mg/dL (NEG) Urine Ketones (Stick) Negative mg/dL (NEG) Urine Blood Negative (NEG) Urine Nitrite Negative (NEG) Urine Bilirubin Negative (NEG) Urine Urobilinogen Dipstick 0.2 mg/dL (0.2 mg/dL) Urine Leukocyte Esterase Negative (NEG) Urine RBC 0 /HPF (0-2) Urine WBC 0 /HPF (0-4) Urine Bacteria 0 /HPF (0-FEW) Urine Hyaline Casts Few /HPF Triglycerides Level 233 mg/dL (0-150) H Cholesterol Level 206 mg/dL (0-200) H LDL Cholesterol, Calculated 117 mg/dL (0-100) H VLDL Cholesterol, Calculated 47 mg/dL (0-40) H Non-HDL Cholesterol Calculated 164 mg/dL (0-129) H HDL Cholesterol 42 mg/dL (40-60) Cholesterol/HDL Ratio 4.9 Thyroid Stimulating Hormone (TSH) 4.030 uIU/mL (0.358-3.74) H Laboratory Tests 06/02/21 20:30 06/03/21 04:30 Laboratory Tests 06/02/21 20:30 06/03/21 04:30 ASSESSMENT/PLAN ASSESSMENT/PLAN 1. PAflutter with RVR: new onset. Now SR. Spontaneous conversion to SR without meds. EKG with early repolarization 2. HLP 3. Tobaccoism: uses cigar Recommendations 1. MCOT 2. Noted with HR in the mid40s mainly while asleep otherwise SR in the 60s. Will start on very low dose toprol 3. ASA for now. await TTE result and will likely start on flecainide GEO JOY MD 06/03/21 1809: CARDIAC CONSULT ASSESSMENT/PLAN ASSESSMENT/PLAN Patient seen and examined. Agree with SADDLE STITCH OPERATOR's assessment and plan. PAF, new onset, presently back in SR Start toprol and ASA and check 2D echo ad outpatient event monitor Madelyn lees for your consultation CINDY COX APRN Jun 03, 2021 11:36 GEO JOY MD Jun 03, 2021 18:09
--- NOTE | 2021-06-03 11:42 | NUR ---
SS following for discharge planning. SS reviewed pt chart and discussed with pt RN. Pt is from home with spouse and is currently on room air. COVID19 test pending. Cardiology consulted. ECHO ordered. Pt on Heparin Sub Q. SS will continue to follow for discharge planning.
[2021-06-03] MEDS: METOPROLOL SUCC 24HR ER 25 MG TAB.ER.24H. PO SCH (12:09)
[2021-06-03] MEDS: ASPIRIN ENTERIC COATED 325 MG TABLET.DR. PO SCH (12:09)
[2021-06-03 15:00] VITALS: BP 122/76
[2021-06-03] MEDS ORDERED: METO-239 PO (16:19)
[2021-06-03 19:32] VITALS: BP 137/85
[2021-06-03] MEDS: SENNOSIDES/DOCUSATE 8.6/50MG TABLET. PO SCH (20:48)
[2021-06-03 22:59] VITALS: BP 118/76
[2021-06-04 03:27] VITALS: BP 133/76
[2021-06-04] MEDS: HEPARIN for SUB-Q USE 5,000 UNIT/ML VIAL. SQ SCH ×2 (05:42→14:00)
[2021-06-04 08:21] VITALS: BP 130/82
[2021-06-04] MEDS: ASPIRIN ENTERIC COATED 325 MG TABLET.DR. PO SCH (08:29)
[2021-06-04] MEDS: SENNOSIDES/DOCUSATE 8.6/50MG TABLET. PO SCH (08:29)
[2021-06-04] MEDS: ATORVASTATIN CALCIUM 40 MG TABLET. PO SCH (08:30)
[2021-06-04] MEDS: METOPROLOL SUCC 24HR ER 25 MG TAB.ER.24H. PO SCH (09:51)
--- NOTE | 2021-06-04 09:54 | PDOC ---
CINDY COX FULLING MACHINE OPERATOR 06/04/21 0954: CARDIO Progress Notes Date and Time Date of Service 06/04/2021 Time of Evaluation 0950 Subjective Subjective: No Chest Pain, No shortness of breath, No Palpitations Vitals Vitals Vital Signs Date Time Temp Pulse Resp B/P (MAP) Pulse Ox O2 Delivery O2 Flow Rate FiO2 06/04/21 08:21 58 130/82 (98) 06/04/21 03:27 98.5 16 100 Room Air 98.5 Weight Weight [ ] Input and Output Intake and Output Intake and Output 06/04/21 07:00 Intake Total 800 ml Balance 800 ml Intake Oral 800 ml # Voids 5 Laboratory Labs Laboratory Tests Test 06/03/21 10:50 SARS-CoV-2 RNA (EVON) Negative (Negative) SARS-CoV-2 Antigen (Rapid) Negative (NEGATIVE) Physical Exam HEENT: Neck Supple W Full Motion Chest: Symmetric LUNGS: Clear to Auscultation Heart: S1S2, RRR (SR) Abdomen: Soft N/T Extremities: No Edema, No Calf Tenderness Neurology: alert, oriented, follow commands Assessment Assessment 1. PAflutter with RVR: new onset. Now SR. Spontaneous conversion to SR without meds. EKG with early repolarization. SR 2. HLP 3. Tobaccoism: uses cigar Recommendations 1. MCOT 2. Low dose toprol and start on flecainide for rhythm maintenance 3. ASA for stroke prevention. 4. Follow up in office. smoking cessation 5. will need outpt YUE workup Justicifation of Admission Dx: Justifications for Admission: Justification of Admission Dx: Yes GEO JOY MD 06/04/21 1207: CARDIO Progress Notes Assessment Assessment Patient seen and examined. Agree with RESIDENTIAL SALES REP's assessment and plan. PAF, presently maintaining sinus rhythm. 2D echo showed normal LV systolic function. Start flecainide for antiarrhythmic therapy. Plan outpatient event monitor and follow-up as scheduled. CINDY COX APRN Jun 04, 2021 09:54 GEO JOY MD Jun 04, 2021 12:07
[2021-06-04] MEDS ORDERED: FLEC100T PO (09:55)
[2021-06-04] MEDS ORDERED: FLECAINIDE ACETATE 50 MG TABLET. PO SCH (10:00)
--- NOTE | 2021-06-04 10:33 | NUR ---
SS following up with discharge planning. SS reviewed pt chart and discussed with pt RN. Pt is currently on room air. Cardiology following. COVID19 negative. Probable discharge to home when medically ready for discharge. SS will continue to follow for discharge planning.
[2021-06-04 11:15] VITALS: BP 124/83
--- NOTE | 2021-06-04 12:33 | CARD ---
MR#: [id number] Date of Study: 06/04/2021 Ordering Physician: CINDY COX, Referring Physician: CINDY COX Tech: Bambi Leija [facility] APPROVED REPORT EXAM: Two-dimensional and M-mode echocardiogram with Doppler and color Doppler. Other Information Quality : AverageHR: 58bpm Rhythm : NSR INDICATION Atrial Fibrillation RISK FACTORS Hypertension 2D DIMENSIONS RVDd4.3 (2.9-3.5cm)Left Atrium(2D)3.8 (1.6-4.0cm) IVSd1.4 (0.7-1.1cm)Aortic Root(2D)3.9 (2.0-3.7cm) LVDd4.9 (3.9-5.9cm)LVOT Diameter2.5 (1.8-2.4cm) PWd1.5 (0.7-1.1cm)LVDs3.0 (2.5-4.0cm) FS (%) 39.5 %SV79.3 ml LVEF(%)69.9 (>50%) Aortic Valve AoV Peak Renato.120.5cm/sAoV VTI29.5cm AO Peak GR.5.8mmHgLVOT Peak Renato.103.7cm/s AO Mean GR.3mmHgAVA (VMAX)4.30cm2 Mitral Valve MV E Exvcwadj48.7cm/sMV DECEL [id number] MV A Nqtlicss13.5cm/sE/A Ratio0.9 Pulmonary Valve PV Peak Grsfbcsv20.9cm/s Tricuspid Valve TR P. [id number]/sTR Peak Gr.20mmHg LEFT VENTRICLE The left ventricle is normal size. There is mild to moderate concentric left ventricular hypertrophy. The left ventricular systolic function is normal and the ejection fraction is within normal range. E stimated ejection fraction 60%. There is normal LV segmental wall motion. The left ventricular diasto lic function and filling is normal for age. RIGHT VENTRICLE The right ventricle is normal size. There is normal right ventricular wall thickness. The right ventr icular systolic function is normal. ATRIA The left atrium size is normal. The right atrium is borderline dilated. The interatrial septum is int act with no evidence for an atrial septal defect or patent foramen ovale as noted on 2-D or Doppler i maging. AORTIC VALVE The aortic valve is normal in structure and function. Doppler and Color Flow revealed no significant aortic regurgitation. There is no significant aortic valvular stenosis. MITRAL VALVE The mitral valve is normal in structure and function. There is no evidence of mitral valve prolapse. There is no mitral valve stenosis. Doppler and Color-flow revealed mild mitral regurgitation. TRICUSPID VALVE The tricuspid valve is normal in structure and function. Doppler and Color Flow revealed mild tricusp id regurgitation. Estimated PAP 23-25 mmHg. There is no tricuspid valve stenosis. PULMONIC VALVE Doppler and Color Flow revealed no pulmonic valvular regurgitation. There is no pulmonic valvular clara nosis. GREAT VESSELS The aortic root is mildly enlarged. The ascending aorta is mildly dilated at 3.9 cm. The IVC is rhea l in size and collapses >50% with inspiration. PERICARDIAL EFFUSION There is no evidence of significant pericardial effusion. Critical Notification Critical Value: No <Conclusion> The left ventricular systolic function is normal and the ejection fraction is within normal range. E stimated ejection fraction 60%. There is normal LV segmental wall motion. The ascending aorta is mildly dilated at 3.9 cm. Signed by : Logan Traylor, Electronically Approved : 06/04/2021 12:33:17
--- NOTE | 2021-06-04 12:35 | PDOC3 ---
[facility]-Discharge Summary Date of Admission: Date of Admission: Jun 03, 2021 Date of Discharge: Date of Discharge: Jun 04, 2021 Admission Diagnosis: Problems: (1) New onset a-fib Consults: Consults: Cardiology Hospital Course: Hospital Course: HPI: Patient is a 65-year-old white male presented to the emergency room yesterday due to late this. Patient reports he was working out yesterday and felt a little bit lightheaded by the end of his workout; said he usually works out 3-4 times a week. Drove home and was feeling much more lightheaded. Contacted his daughter who is an CHEMICAL RECLAMATION EQUIPMENT OPERATOR here and she evaluated him. Was able to be hooked up to a monitor and to be in A. fib with RVR. Recommended he come to the emergency room at that point. On arrival here he was still in A. fib with RVR. His symptoms did improve. He spontaneously converted back to sinus rhythm while down there. Given the episode admission was recommended. Cardiology was also consulted in emergency room. Patient reports to me that he had a few friends which caused him to be more concerned about his health. He had a [facility] [place] done [place] [facility] [place] [facility] [place] that he thinks was normal. He was started on Rouvastatin after that. Denies any other medical history. Reports that he used to be a heavy drinker when he was in the [place]. Now is drinking he has tried to cut back and said he only drinks on weekends now. However he said he has multiple drinks a day on those days used at the point of getting drunk. He also smokes cigarettes while drinking. I evaluated the patient he was resting in bed no complaints that he is feeling much better. Cardiology consulted. 06/04 Evaluated at bedside. Echo completed. No complaints doing well. Discharge home today with cardiology follow-up outpatient. Plan of care discussed with bedside RN. Greater than 30 minutes on discharge. 18 minutes advance care planning. Disposition: Disposition/Orders: D/C to Home Activity: Activity: Resume previous activity Diet: Diet: Cardiac Medications: Home Meds Active Scripts Flecainide Acetate (FLECAINIDE ACETATE) 100 Mg Tablet, 1 TAB PO BID for afib for 30 Days, #60 TAB 5 Refills Prov:CINDY COX APRN 06/04/21 Metoprolol Succinate (METOPROLOL SUCCINATE ( XL )) 25 Mg Tab.er.24h, 12.5 MG PO DAILY for afib for 30 Days, #15 TAB.SR 3 Refills Prov:CINDY COX [employer] 06/03/21 Reported Medications Multivitamin (MULTI VITAMIN DAILY) 1 Each Tablet, 1 TAB PO DAILY for for 30 Days, #30 TAB 0 Refills 06/03/21 [place]-3 Fatty Acids/Fish Oil (FISH OIL 1,000 MG SOFTGEL) 1 Each Capsule, 1 CAP PO DAILY for for 30 Days, #30 CAP 0 Refills 06/03/21 Rosuvastatin Calcium (CRESTOR) 5 Mg Tablet, 2 TAB PO DAILY for , #30 TAB 5 Refills 06/03/21 Scheduled Flecainide Acetate (Flecainide Acetate), 1 TAB PO BID Metoprolol Succinate (Metoprolol Succinate ( Xl )), 12.5 MG PO DAILY Multivitamin (Multi Vitamin Daily), 1 TAB PO DAILY, (Reported) [place]-3 Fatty Acids/Fish Oil (Fish Oil 1,000 Mg Softgel), 1 CAP PO DAILY, (Reported) Rosuvastatin Calcium (Crestor), 2 TAB PO DAILY, (Reported) Justicifation of Admission Dx: Justifications for Admission: Justification of Admission Dx: Yes CHF: Cardiac Arrhythmias DALLAS BAKER MD Jun 04, 2021 12:35
[2021-06-04] MEDS ORDERED: ASPI325T11 PO (14:00)
--- NOTE | 2021-06-04 14:30 | NUR ---
Discharge Note: LEO VILLANUEVA [address] [place] [address] Discharge instructions and discharge home medications reviewed with Patient and a copy given. All questions have been answered and understanding verbalized. The following instructions and handouts were given: discharge instructions, med list, follow ups, education Discontinued lines and drains: Peripheral IV intact. Patient discharged to Home or Self Care with Spouse via Ambulated at 1430
== END 2021-06-04 14:30 | disposition home or self-care (01) ==
LOC: ER 19:47 → INTOOBSV 22:11 → 6 SOUTH 22:11 → UNDOADMIN 06-03 02:35
PROVIDERS: ADMIT Internal Medicine; ATTEND Internal Medicine
DX: I48.20 Chronic atrial fibrillation, unspecified (principal); Z20.822 Contact with and (suspected) exposure to COVID-19; R42 Dizziness and giddiness; I48.92 Unspecified atrial flutter; I48.0 Paroxysmal atrial fibrillation; E78.00 Pure hypercholesterolemia, unspecified; E78.5 Hyperlipidemia, unspecified; F17.210 Nicotine dependence, cigarettes, uncomplicated; Z90.49 Acquired absence of other specified parts of digestive tract; Z79.899 Other long term (current) drug therapy; Z98.890 Other specified postprocedural states
CPT/HCPCS: 36415; 71045; 80053; 80061; 81001; 83735; 83880; 84100; 84443; 84484; 85025; 85379; 85610; 87426; 93005; 93306; 96372; 99285; G0378; J1644; U0003; U0005; G0379; C8929